=== PATIENT | female | born 1985 | race Caucasian/White ===

== ENCOUNTER 2016-06-17 12:04 | Emergency (ER) | payer SELFPAY ==
[~2016-06-17] VITALS: Ht 261.6 cm; Wt 88.5 kg
[2016-06-17 12:22] VITALS: Ht 261.6 cm; Wt 88.5 kg
[2016-06-17] MEDS ORDERED: FLUT9.9S NASAL (13:39)
[2016-06-17] MEDS ORDERED: PSEU30TA38 PO (13:39)
[2016-06-17] MEDS ORDERED: IBUP800T25 PO (13:39)
[2016-06-17] MEDS ORDERED: ACET325T33 PO (13:39)
--- NOTE | 2016-06-17 15:46 | ERD ---
DATE OF SERVICE: 06/17/2016 HISTORY OF PRESENT ILLNESS: The patient is a 30-year-old female coming in complaining of fever and body aches. Patient states that she has a sore throat, bilateral ear pain, has had tactile fevers, ____ this morning with no alleviation. Has a dry cough, no sick contacts at home. PAST MEDICAL HISTORY: No medical problems. ALLERGIES: TO MEDICATIONS DENIES. HOSPITALIZATIONS: Denies. SOCIAL HISTORY: Smokes 1 to 2 cigarettes a day. REVIEW OF SYSTEMS: A 12-point review of systems was done. Refer to HPI for positives, all other sy stems negative. PHYSICAL EXAMINATION VITAL SIGNS: Temperature is 97.9, pulse 83, blood pressure is 113/57, respiratory 14, O2 sat 96% on room air. Pain intensity 6/10. GENERAL: The patient is well-appearing, well-nourished, no acute distress. HEENT: Atraumatic. Conjunctivae are pink. Pupils equal, round, and reactive to light. There is no s cleral icterus. Tympanic membranes clear bilaterally. Oropharynx clear. No nystagmus or photophobia . CHEST: Clear to auscultation bilaterally. There are no rales, wheezes or rhonchi. HEART: Regular rate and rhythm. No murmurs, clicks, rubs or gallops. No S3 or S4. ABDOMEN: Soft, nontender and nondistended. Good bowel sounds. No rebound or guarding. No gross vick tonitis. No gross organomegaly or masses. No Benitez sign or McBurney point tenderness. DIAGNOSIS: Upper respiratory infection. MEDICAL DECISION MAKING: I have low suspicion for bacterial infection. Low suspicion for bact erial pneumonia, low suspicion for meningitis or sepsis. The patient's exams are within normal limi ts. The patient is nontoxic appearing. Patient likely has viral upper respiratory infection. DISCHARGE: The patient is discharged stable. Patient given prescription for Flonase, Motrin, Sudaf ed and Tylenol and told to follow up with primary care within 1 to 2 days for reevaluation. The pat ient was told if symptoms progress or worsen to return to the ER. All other questions answered at t liseth of discharge. Discharge summary given at the time of departure. Patient understood and complie d with plan. Dictated By: ANASTACIO SMIONKKOS DO /CODI Conf#: [id number] DID#: [id number]
== END 2016-06-17 14:01 | disposition home or self-care (01) ==
LOC: FTE 12:04
DX: J06.9 Acute upper respiratory infection, unspecified (principal); F17.210 Nicotine dependence, cigarettes, uncomplicated
CPT/HCPCS: 99283